=== PATIENT | female | born 1980 | race Caucasian/White ===

== ENCOUNTER 2017-11-11 08:38 | Outpatient (CLI) | payer BC ==
--- NOTE | 2017-11-11 14:30 | NM ---
NUCLEAR MEDICINE HEPATOBILIARY SCAN: DATE: 11/11/2017 HISTORY: A 37-year-old female with right upper quadrant abdominal pain. TECHNIQUE: [id number] dose: 4.8 mCi Fatty meal dose: 8 oz [id number] injected IV. Dynamic anterior scintigraphy of abdomen for 1 hour. Fatty meal given . Additional dynamic anterior scintigraphy of abdomen. Counts obtained over gallbladder. Time-acti vity curve generated. FINDINGS: Normal uptake and washout of activity from the liver. Bowel activity visualized at the appropriate t cyn. Somewhat delayed filling of the gallbladder, beginning at approximately 55 minutes. After fatt y meal administration, a gallbladder ejection fraction of 45% was obtained (gallbladder ejection frac tion is considered abnormal if lower than 35% to 40%). IMPRESSION: Slow-filling gallbladder. Gallbladder ejection fraction near the lower limits of the normal range. PIA Ritter POS: [facility]
== END 2017-11-11 08:39 | disposition home or self-care (01) ==
LOC: NM 08:38
PROVIDERS: ATTEND Family Medicine
DX: R10.11 Right upper quadrant pain (principal)
CPT/HCPCS: 78227; A9537

== ENCOUNTER 2018-02-09 16:25 | Outpatient (CLI) | payer BC ==
--- NOTE | 2018-02-09 17:29 | RAD ---
RADIOGRAPH CHEST 2 VIEW: 02/09/18 HISTORY: 37-year-old female with chest pain and hypertension. FINDINGS: There is no air space density, pulmonary edema, pleural effusion, or pneumothorax. IMPRESSION: No acute pulmonary findings. jn [] POS: [facility]
== END 2018-02-09 16:26 | disposition home or self-care (01) ==
LOC: SCSRAD 16:25
PROVIDERS: ATTEND Family Medicine
DX: I10 Essential (primary) hypertension (principal); M05.79 Rheumatoid arthritis with rheumatoid factor of multiple sites without organ or systems involvement
CPT/HCPCS: 71046

== ENCOUNTER 2018-07-07 07:32 | Observation (INO) | payer BC ==
[2018-07-07] MEDS ORDERED: Iopamidol 370 76% 100 ML VIAL ONE (08:39)
[2018-07-07 09:35] LABS: CKMB 0.5 ng/mL (0-6.6); Troponin I Less than 0.010 ng/mL (< 0.028)
[2018-07-07 12:45] LABS: Troponin I Less than 0.010 ng/mL (< 0.028)
[2018-07-07] MEDS ORDERED: Acetaminophen 325 MG TAB PO PRN (13:23)
[2018-07-07 13:45] VITALS: BMI 33.6
[2018-07-07] MEDS ORDERED: Fentanyl 100 MCG/2 ML VIAL ONE (14:51)
[2018-07-07] MEDS ORDERED: Midazolam HCl 2 mg/2 ml Vial ONE (14:51)
[2018-07-07] MEDS ORDERED: Lidocaine 1% (PF) 30 ML VIAL ONE (14:52)
[2018-07-07] MEDS ORDERED: Communication Order-Pharmacy FS SCH (15:00)
[2018-07-07] MEDS ORDERED: Sodium Chloride 0.9% 1,000 ML IV SCH (15:00)
--- NOTE | 2018-07-07 15:14 | CON ---
DATE OF CONSULTATION: 07/07/2018 CARDIOLOGY CONSULTATION REASON FOR CONSULTATION: Chest pain. PRIMARY COMPENSATOR WORKER: Mike Gillespie M.D. HISTORY OF PRESENT ILLNESS: Ms. Medeiros is a very pleasant 38-year-old white female who comes to the hospital for chest pain. She is woken up at 3:00 a.m. in the morning for midsternal chest pain descr ibed as a stone on the middle of her chest, pressure. She woke up, checked her blood pressure and it was 73/56. She noted that the pain radiated to the jaw, so the brought her in for further e valuation. She is ruled out for an MN with negative troponins. She has had several episodes of ches t pain in the past. She has had a nuclear stress test back at age 32 and more recently a nuclear str ess echo that was negative. This was about 2 months ago. She follows with Dr. Gillespie, last seen by Dr. Jose Miguel Vasquez' physician preschool teacher assistant and she was getting her lipid medications change. She h as a history of fibromyalgia, but also has a very significant history of coronary artery disease in h er family. Her brother had a 5-vessel bypass at age 32 and her grandmother had her first MN at age 5 2 and mother and father both had bypasses and had ischemic cardiomyopathy in early age in their early 50s and upper 40s. Currently, she is chest pain free. PAST MEDICAL HISTORY: 1. Fibromyalgia. 2. Rheumatoid arthritis. 3. Hypertension. 4. Hyperlipidemia. PAST SURGICAL HISTORY: x2. SOCIAL HISTORY: No alcohol, tobacco or drugs. FAMILY HISTORY: Positive for premature coronary artery disease in brother and both parents as well a s grandmother from the mother's side. OUTPATIENT MEDICATIONS: Include, 1. Folic acid. 2. Hydrochlorothiazide. 3. Lisinopril 10 mg a day. 4. Omeprazole. 5. Prednisone 40 mg daily. 6. Vascepa. 7. Otrexup. 8. Tramadol p.r.n. ALLERGIES: IBUPROFEN and PENICILLIN. She is also allergic to CHICKEN with the tramadol. REVIEW OF SYSTEMS: Twelve point review of systems is done and it is all negative except as mentioned in the history of present illness. PHYSICAL EXAMINATION: VITAL SIGNS: Temperature 98.2, pulse 95, respiration rate 18, satting 97% on room air, blood pressur e 116/75. GENERAL: Awake, alert and oriented x3, in no distress. HEENT: Normocephalic, atraumatic. NECK: Supple. LUNGS: Lungs are clear. CARDIOVASCULAR: S1, S2. No S3, S4. No murmurs. ABDOMEN: Soft. Positive bowel sounds. EXTREMITIES: No edema. SKIN: Warm and dry. LABORATORY WORK: Reviewed. Troponin is negative x2. CBC with a white count of 10.9, hematocrit of 39, platelet count of 222,000 and chemistries were unremarkable except for a BUN of 18, creatinine of 1.01, GFR of 61. Glucose was 156. AST and ALT were a little bit elevated. test was nega tive. IMAGING: Chest x-ray showed no acute cardiopulmonary issues. ASSESSMENT AND PLAN: Chest pain: This is chronic in nature. She is at high risk for coronary arter y disease with her family history. At this point, she has had negative stress testing in the past. She has never had a heart catheterization. I spoke with her about the need to completely make sure t hat this is not coronary disease. She agrees with this. I also spoke with her about this an d they both agree that the best way to know would be with a heart catheterization. Both of her paren ts and brother have gone through this several times in the past. We spoke at length about the risks and benefits of the procedures, which included, but not limited to stroke, myocardial infarction, gregg th, bleeding, need for blood transfusion, limb loss, organ loss and she understands the above and arturo balized understanding of this and agrees to proceed. Further recommendation per results of coronary angiogram.
[2018-07-07 15:32] LABS: Troponin I Less than 0.010 ng/mL (< 0.028)
[2018-07-07] MEDS ORDERED: Verapamil 5 MG/2 ML VIAL ONE (15:39)
[2018-07-07] MEDS ORDERED: Heparin 10,000 UNITS/1 ML VIAL ONE (15:39)
[2018-07-07] MEDS ORDERED: Nitroglycerin 100MG/250ML BOT 250 ML ONE (15:39)
[2018-07-07] MEDS ORDERED: Acetaminophen/Codeine 30-300mg Tablet PO PRN (16:06)
[2018-07-07] MEDS ORDERED: traMADol HCl 50 MG TAB PO PRN (16:06)
[2018-07-07] MEDS ORDERED: Nitroglycerin 0.4 MG TAB (25 Tab Bottle) SL PRN (16:06)
[2018-07-07] MEDS ORDERED: Sodium Chloride 0.9% 200 ML IV SCH (16:15)
--- NOTE | 2018-07-07 17:32 | HP ---
DATE OF ADMISSION: 07/07/2018 PRIMARY CARE PHYSICIAN: Bay Hua M.D. CHIEF COMPLAINT: Chest pain. HOSPITAL COURSE: The patient presented to the emergency room today for chest pain that woke her up at 3:00 this morning. Patient describes the pain as crushing substernal with radiation to the back and left side of the jaw. Patient describes the sensation as "her heart quit moving," also felt like it was very heavy. The patient reports she took her blood pressure at home and she was hypotensive at 73/56. The patient reports she has had similar symptoms about a year ago after a road trip. She has had a previous history of similar chest pain and had a nuclear stress test at the age of 32, had an echo stress test in March, which was negative. 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 The patient does have a significant family history of cardiac disease, both parents had 5-6 vessel CABG. Brother has also had a 5-vessel CABG. Based on symptoms and the family history, the patient was admitted to the observation unit. Serial troponins were negative, Dr. Junior was consulted and he talked to the patient who consented to a Cardiac Cath which was performed the same day. Showed mild LAD disease. Patient was observed for 4 hours after the procedure, VS remained stable, no active bleeding was seen from catheter insertion site and the patient was discharged home to follow up with Dr. Richardson and Dr. Francisco. CURRENT MEDICATIONS: Include folic acid 1 mg p.o. daily, hydrochlorothiazide 25 mg daily, lisinopril 10 mg once a day, prednisolone 4 mg p.o. once a day, Vascepa 2 capsules b.i.d., Otrexup 10 mg subcutaneous, subcu tramadol 2 tablets q.12 hours, Zanaflex 8 mg at bedtime, Tylenol 650 two tabs b.i.d. Pravastatin 20mg po daily was added to her daily regimen on discharge. ALLERGIES: PENICILLIN, IBUPROFEN, has an allergic reaction to CHICKEN when she takes it with her TRAMADOL. PAST MEDICAL HISTORY: Includes rheumatoid arthritis, fibromyalgia, hypertension. PAST SURGICAL HISTORY: Includes a section x2. SOCIAL HISTORY: The patient denies any alcohol use, drug use and has no smoking history. FAMILY HISTORY: Both parents positive for cardiac disease, both had CABG is 4- 5 vessels. Brother has also had a 5-vessel CABG in the recent past. Mother also reported history of diabetes type 2. REVIEW OF SYSTEMS: Constitutional: Denies fatigue. Denies fever, denies malaise. Eyes: Denies eye pain, denies eye discharge, denies nystagmus. ENT: Denies rhinorrhea, sore throat or voice changes. Cardiovascular: Reports chest pain. Denies syncope. Respiratory: Denies shortness of breath, denies cough, denies wheezing. Gastrointestinal: Denies abdominal pain, anorexia, appetite changes, constipation, diarrhea, nausea, vomiting. Musculoskeletal: Denies arthralgias, does have a history of rheumatoid arthritis which is under good control with medication. Skin: Denies cellulitis or rash, skin lesions. Neurologic: Denies confusion. Denies dizziness or headache. Psychiatric: Denies anxiety or depression. PHYSICAL EXAMINATION: VITAL SIGNS: Blood pressure 115/79, pulse is 81, respiratory rate is 19, temperature is 98.1, pulse ox is 96 on room air. GENERAL: Patient is in no apparent distress, nontoxic. HEAD: Atraumatic, normocephalic. EYES: Eyelids are normal to inspection. Pupils are equally round and reactive to light. Extraocular muscles are intact. ENT: Mucous membranes are moist. Mouth exam is normal. NECK: Trachea is midline. No JVD. Normal range of motion. RESPIRATORY: Breath sounds are clear bilaterally. No wheezing or rales. CARDIOVASCULAR: S1, S2 normal. No abnormal heart sounds are heard. ABDOMEN: female, nontender on palpation. Bowel sounds are heard in all 4 quadrants. BACK: Normal range of motion, normal inspection. EXTREMITIES: Upper extremity: Inspection is normal. Range of motion is normal. Radial pulses normal. Lower extremities: Inspection is normal range, normal range of motion. No pedal edema is noted. NEUROLOGIC: The patient is oriented to person, place and time. No focal sensory or motor deficits are noted. SKIN: Warm, dry, normal in color. PSYCHIATRIC: The patient is oriented to person, place and time, has a normal affect. EKG where in the emergency room showed a normal sinus rhythm at 78 beats per minute. No ectopics. ST segments are normal, T waves normal, axis is normal. LABORATORY DATA:Troponins x3 are negative. White blood cell count is 10.9, hemoglobin 12.5, hematocrit 39.1, platelet count is 222. Sodium is 135, potassium 3.7, chloride 101, carbon dioxide 21, anion gap is 17, BUN is 18, creatinine is 1.01, estimated GFR 61, glucose 156, total bilirubin is 0.3, AST is 53, ALT is 57, alkaline phosphatase is 41. DISCHARGE DIAGNOSES: 1. Chest pain, atypical 2. Rheumatoid arthritis. We will continue her home medications. 3. Hypertension. We will continue her home medications. 4. Fibromyalgia. We will continue her home medications. 5. Deep venous thrombosis and gastrointestinal prophylaxis will be started. Patient in stable condition on discharge, instructed to follow up with Dr. Hua within the next week and follow up with Dr. Francisco in the next 2-3 days. LULI
[2018-07-07 20:12] VITALS: BP 107/58; TEMP 98.7
[2018-07-07] MEDS ORDERED: Atorvastatin Calcium 10 MG TAB PO SCH (21:00)
== END 2018-07-07 20:17 | disposition home or self-care (01) ==
LOC: ERS 07:32 → 2SW 13:39
PROVIDERS: ADMIT Family Medicine; ATTEND Family Medicine
PROC: 4A023N7 Measurement of Cardiac Sampling and Pressure, Left Heart, Percutaneous Approach (ICD-10-PCS; principal; 2018-07-07)
PROC: B2111ZZ Fluoroscopy of Multiple Coronary Arteries using Low Osmolar Contrast (ICD-10-PCS; 2018-07-07)
DX: I25.10 Atherosclerotic heart disease of native coronary artery without angina pectoris (principal); E78.5 Hyperlipidemia, unspecified; M79.7 Fibromyalgia; M06.9 Rheumatoid arthritis, unspecified; I10 Essential (primary) hypertension; Z79.52 Long term (current) use of systemic steroids; Z79.899 Other long term (current) drug therapy; Z88.0 Allergy status to penicillin; Z88.5 Allergy status to narcotic agent; Z88.8 Allergy status to other drugs, medicaments and biological substances; Z91.018 Allergy to other foods
CPT/HCPCS: 36415; 93005; 93458; 96360; 96361; 99152; C1769; G0378; J1644; J2001; J2250; J3010

== ENCOUNTER 2018-11-29 10:10 | Outpatient (CLI) | payer BC ==
--- NOTE | 2018-11-29 11:15 | ULT ---
Hepatic sonogram with duplex evaluation HISTORY: Abnormal liver function tests. Right upper quadrant pain. FINDINGS: Gallbladder has a normal appearance without evidence of stones. Common duct is dilated at 1 .0 cm on today's exam. Internal stones are not visible. Liver is diffusely echogenic without focal mass or intrahepatic biliary dilatation. No free fluid. Spleen is 9.2 cm. Good color and spectral Doppler flow within the hepatic and splenic arteries. Portal venous flow is t owards the liver. Hepatic venous flows towards the IVC. IMPRESSION: Dilatation of the common bile duct to 1.0 cm. While this can be a finding of acute biliar y obstruction, the biliary duct was patent on hepatobiliary scan from 11/11/2017. No internal stones are visible. Hepatosteatosis. No sonographic evidence of portal venous hypertension.
[2018-11-29 14:32] LABS: Ferritin 284.37 ng/mL (10-291)
[2018-11-29 14:44] LABS: Hep B Surf AB Non-Reactive (NonReactive); Hep C IgG Ab Non-Reactive (NonReactive); Hep C Index 0.09 S/CO (0-0.79)
[2018-11-30 08:18] LABS: Hepatitis A Total ABS Negative (Negative)
[2018-12-01 12:13] LABS: Smooth Muscle Total ABS 9 Units (0-19)
[2018-12-01 13:13] LABS: Alpha-1-Antitrypsin 144 mg/dL (90-200)
[2018-12-01 16:43] LABS: ANA Symphony (Qualitative) Negative (Negative); ANA Symphony (Quantitative) 0.1 Ratio (< 0.7 Negative); EliA Vaculitis New Method **** NEW METHOD ****; Mitochondrial Ab Less than 0.5 U/mL (<4 Negative); dsDNA IgG Antibody Less than 0.5 IU/mL (<10 Negative)
== END 2018-11-29 10:11 | disposition home or self-care (01) ==
LOC: SCSULT 10:10
PROVIDERS: ATTEND Physician Assistant Medical
DX: R11.2 Nausea with vomiting, unspecified (principal); R94.5 Abnormal results of liver function studies; R10.11 Right upper quadrant pain
CPT/HCPCS: 36415; 76705; 82103; 82104; 82150; 82390; 82728; 83516; 83540; 83550; 83690; 86038; 86225; 86706; 86708; 86803

== ENCOUNTER 2018-12-20 09:22 | Outpatient (CLI) | payer BC ==
[~2018-12-20 09:22] MED LIST: Gadobenate Dimeglumine 529 MG/1 ML (20ML VIAL) ONE
--- NOTE | 2018-12-20 11:16 | MRI ---
MRI ABDOMEN WITH AND WITHOUT CONTRAST MRCP WITH CONTRAST WITH 3D VOLUME RENDERING: MRI abdomen with and without contrast MRCP with contrast, with 3-D volume rendering CLINICAL HISTORY: Abnormal liver function enzymes, liver function test abnormal (R94.5). Reference is made to hepatic Doppler exam 11/29/2018 FINDINGS: By in phase/out of phase imaging, there is signal drop compatible with hepatic steatosis. There is no evidence of a focal hepatic lesion. MRCP imaging does not reveal focal filling defect of the gallbladder to indicate cholelithiasis. The imaged biliary ductal system is of normal caliber, and no significant, persistent filling defects are identified within the imaged portions. The spleen is elongated, nearing 17 cm in length. Pancreas is unremarkable. No discrete adrenal lesio n. No hydronephrosis of either kidney. No ascites. Regional marrow is unremarkable. IMPRESSION: 1. Hepatic steatosis. No focal hepatic lesion is identified. 2. No abnormal biliary ductal dilatation or evidence of choledocholithiasis. 3. Splenomegaly. Correlate clinically. Transcribed Date/Time: 12/20/2018 11:41 AM
== END 2018-12-20 09:23 | disposition home or self-care (01) ==
LOC: SCSMRI 09:22
PROVIDERS: ATTEND Internal Medicine Gastroenterology
DX: K83.8 Other specified diseases of biliary tract (principal); R94.5 Abnormal results of liver function studies; K76.0 Fatty (change of) liver, not elsewhere classified; R16.1 Splenomegaly, not elsewhere classified
CPT/HCPCS: 74183; A9577

== ENCOUNTER 2022-10-13 07:43 | Day surgery (SDC) | payer BC ==
[2022-10-13 07:46] LABS: PTT 25.1 sec (22.9-36.1); Prothrombin Time 13.2 sec (12.0-14.7)
[2022-10-13 08:53] LABS: #Basophils 0.1 thou/uL (0.0-0.2); #Eosinphils 0.2 thou/uL (0.0-0.7); #Lymphocytes 2.8 thou/uL (1.20-3.40); #Monocytes 0.6 thou/uL (0.11-0.59); #Neutrophils 5.7 thou/uL (1.40-6.50); %Basophils 0.5 % (0.0-1.0); %Eosinophils 2.4 % (0.0-10.0); %Lymphocytes 29.6 % (21.0-51.0); %Monocytes 6.9 % (0.0-10.0); %Neutrophils 60.7 % (42.0-75.0); Hemoglobin 13.8 g/dL (12.0-16.0); Mean Corpuscular HGB CONC 33.2 g/dL (32.0-36.0); Mean Corpuscular Hemoglobin 28.1 pg (27.0-31.0); Mean Corpuscular Volume 84.6 fl (78.0-98.0); Mean Platelet Volume 8.8 fL (7.4-10.4); Platelet Count 118 10x3/uL (130-400); RBC Distribution Width 12.6 % (11.5-14.5); Red Blood Cell (RBC) Count 4.91 mill/uL (4.20-5.40); White Blood Cell (WBC) Count 9.4 10x3/uL (4.8-10.8)
[2022-10-13] MEDS ORDERED: Midazolam HCl 2 mg/2 ml Vial ONE (09:25)
[2022-10-13] MEDS ORDERED: Fentanyl 100 MCG/2 ML VIAL ONE (09:25)
[2022-10-13] MEDS ORDERED: Sodium Bicarbonate 2.5 MEQ/5 ML VIAL ONE (09:26)
[2022-10-13] MEDS ORDERED: Lidocaine 1% PF 5 ML VIAL ONE (09:26)
[2022-10-13 11:05] VITALS: BP 141/101; TEMP 97.3
[2022-10-13] MEDS ORDERED: FLU VACC QS2022-23(6MOS UP)/PF 60 MCG/0.5 ML SYRINGE IM ONE (18:00)
== END 2022-10-13 11:50 | disposition home or self-care (01) ==
LOC: ULT 07:43
PROVIDERS: ATTEND Physician Assistant Medical
PROC: 0FB23ZX Excision of Left Lobe Liver, Percutaneous Approach, Diagnostic (ICD-10-PCS; principal; 2022-10-13)
DX: K75.81 Nonalcoholic steatohepatitis (NASH) (principal); K74.01 Hepatic fibrosis, early fibrosis; R16.1 Splenomegaly, not elsewhere classified; K21.9 Gastro-esophageal reflux disease without esophagitis; M35.9 Systemic involvement of connective tissue, unspecified; I25.10 Atherosclerotic heart disease of native coronary artery without angina pectoris; I10 Essential (primary) hypertension; E78.00 Pure hypercholesterolemia, unspecified; M06.9 Rheumatoid arthritis, unspecified; Z79.52 Long term (current) use of systemic steroids; Z79.82 Long term (current) use of aspirin; Z79.899 Other long term (current) drug therapy; Z88.0 Allergy status to penicillin; Z88.6 Allergy status to analgesic agent; Z91.018 Allergy to other foods
CPT/HCPCS: 47000; 76942; 85025; 85610; 85730; 88307; 88313; J2250; J3010

== ENCOUNTER 2022-12-19 13:56 | Outpatient (CLI) | payer BC | END 2022-12-19 13:57 | disposition home or self-care (01) | LOC: EEG 13:56 | PROVIDERS: ATTEND Psychiatry & Neurology Neurology | DX: R41.3 Other amnesia (principal) | CPT/HCPCS: 95816; 95957 ==

== ENCOUNTER 2023-05-25 14:53 | Outpatient (CLI) | payer BC | END 2023-05-25 14:54 | disposition home or self-care (01) | LOC: SCSRAD 14:53 | PROVIDERS: ATTEND Internal Medicine Rheumatology | DX: M54.50 Low back pain, unspecified (principal) | CPT/HCPCS: 72110 ==

== ENCOUNTER 2023-08-21 17:30 | Outpatient (CLI) | payer BC, OTHER | END 2023-08-21 17:31 | disposition home or self-care (01) | LOC: SLEEPLAB 17:30 | PROVIDERS: ATTEND Internal Medicine | DX: G47.33 Obstructive sleep apnea (adult) (pediatric) (principal); R06.83 Snoring; G47.10 Hypersomnia, unspecified; I10 Essential (primary) hypertension; M06.9 Rheumatoid arthritis, unspecified; I25.10 Atherosclerotic heart disease of native coronary artery without angina pectoris; G47.00 Insomnia, unspecified | CPT/HCPCS: 95810 ==

== ENCOUNTER 2023-09-21 09:05 | Outpatient (CLI) | payer BC | END 2023-09-21 09:06 | disposition home or self-care (01) | LOC: BICMAMMO 09:05 | PROVIDERS: ATTEND Physician Assistant | DX: R92.8 Other abnormal and inconclusive findings on diagnostic imaging of breast (principal) | CPT/HCPCS: G0279 ==

== ENCOUNTER 2024-05-31 12:22 | Outpatient (CLI) | payer BC | END 2024-05-31 12:23 | disposition home or self-care (01) | LOC: BICULT 12:22 | PROVIDERS: ATTEND Internal Medicine Gastroenterology | DX: K76.0 Fatty (change of) liver, not elsewhere classified (principal); R16.2 Hepatomegaly with splenomegaly, not elsewhere classified; R11.2 Nausea with vomiting, unspecified; R10.11 Right upper quadrant pain | CPT/HCPCS: 76700 ==